=== PATIENT | female | born 2000 | race Caucasian/White ===

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

== ENCOUNTER 2020-12-11 12:24 | Emergency (ER) | payer BC ==
[2020-12-11 12:37] VITALS: TEMP 98.5
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
[2020-12-11 13:27] LABS: Basophils % (A) 0 %; Eosinophils % (A) 0 %; HCT 37.3 % (34.0-46.0); HGB 12.9 gm/dL (11.4-16.0); Lymphocytes # (A) 1.6 k/uL (1.0-4.8); Lymphocytes % (A) 20 %; MCH 31.1 pg (25.0-35.0); MCHC 34.7 g/dL (31.0-37.0); MCV 89.7 fL (80.0-100.0); Mean Platelet Volume 7.4; Monocytes # (A) 0.4 k/uL (0-1.0); Monocytes % (A) 5 %; Neutrophils % (A) 73 %; Platelet Count 276 k/uL (150-450); RBC 4.16 m/uL (3.80-5.40); RDW 12.3 % (11.5-15.5); WBC 8.2 k/uL (4.0-11.0)
[2020-12-11 13:34] LABS: ALT 21 U/L (4-34); AST 31 U/L (14-36); African American GFR (CKD) >90 (>60 ml/min/1.73 sqM); Albumin 4.6 g/dL (3.5-5.0); Alcohol <10 mg/dL; Alkaline Phosphatase 70 U/L (38-126); Anion Gap 9 mmol/L; Blood Urea Nitrogen 9 mg/dL (7-17); Calcium 9.4 mg/dL (8.4-10.2); Carbon Dioxide 24 mmol/L (22-30); Chloride 106 mmol/L (98-107); Glucose 86 mg/dL (74-99); Non-African American GFR(CKD) >90 (>60 ml/min/1.73 sqM); Potassium 4.4 mmol/L (3.5-5.1); Sodium 139 mmol/L (137-145); Total Bilirubin 0.4 mg/dL (0.2-1.3); Total Protein 7.2 g/dL (6.3-8.2)
[2020-12-11 13:42] LABS: Partial Thromboplastin Time 24.6 sec (22.0-30.0); Prothrombin Time 10.3 sec (9.0-12.0)
[2020-12-11 13:47] LABS: Appearance,Urine Clear (Clear); Bilirubin,Urine Negative (Negative); Blood,Urine Negative (Negative); Color,Urine Yellow; Glucose,Urine (UA) Negative (Negative); Ketones,Urine Negative (Negative); Leukocyte Esterase,Urine Negative (Negative); Nitrite,Urine Negative (Negative); PH, Urine 5.5 (5.0-8.0); Protein,Urine Negative (Negative); Specific Gravity,Urine 1.016 (1.001-1.035); Urobilinogen,Urine <2.0 mg/dL (<2.0)
[2020-12-11 14:18] LABS: Amphetamine Screen,Urine Not Detected (NotDetected); Barbiturate Screen,Urine Not Detected (NotDetected); Benzodiazepines Screen,Urine Not Detected (NotDetected); Cocaine Screen,Urine Not Detected (NotDetected); Methadone Screen, Urine Not Detected (NotDetected); Opiate Screen,Urine Not Detected (NotDetected); Oxycodone Screen, Urine Not Detected (NotDetected); Phencyclidine Screen,Urine Not Detected (NotDetected); Tricyclic Antidepressant,Urine Not Detected (NotDetected); Urn Cannabinoid Scrn Not Detected (NotDetected)
[2020-12-11] MEDS ORDERED: fentaNYL (PF) 50 MCG/ML 2 ML AMP IVP STA (14:34)
[2020-12-11 14:48] VITALS: BP 124/72; PULSE 60; RESP 18
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
== END 2020-12-11 15:24 | disposition home or self-care (01) ==
LOC: EC 12:24
DX: S40.012A Contusion of left shoulder, initial encounter (principal); S20.212A Contusion of left front wall of thorax, initial encounter; S70.12XA Contusion of left thigh, initial encounter; S70.11XA Contusion of right thigh, initial encounter; V89.2XXA Person injured in unspecified motor-vehicle accident, traffic, initial encounter; Y92.410 Unspecified street and highway as the place of occurrence of the external cause
CPT/HCPCS: 36415; 93005; 86900; 86901; 80053; 84484; 85025; 85610; 85730; 86850; 81003; 81025; 80306; 80320; 72125; 70450; 71260; 74177; 96374; 99284; J3010; Q9967

== ENCOUNTER 2022-03-04 05:48 | Day surgery (SDC) | payer BC, OTHER ==
[2022-03-02 15:49] VITALS: BMI 21.9
[~2022-03-04 05:48] MED LIST changes: +DEXAMETHASONE SOD PHOSPHATE 4 MG/ML 1 ML VIAL IV ONE; -Pre Op ABX Message 1 EACH MISC MISCELLANE ONE; +SCOPOLAMINE 1 MG/72 HR PATCH TRANSDERM ONE; -fentaNYL (PF) 50 MCG/ML 2 ML AMP IV PRN
[2022-03-04] MEDS ORDERED: HYDROmorphone 0.5 MG/0.5 ML SYRINGE IVP PRN (07:00)
[2022-03-04] MEDS ORDERED: LIDOCAINE 4% LTA KIT (4 ML) TOPICAL ONE (07:20)
[2022-03-04] MEDS ORDERED: LIDOCAINE 2% INJ 20 MG/ML (2 ML VIAL) ONE (07:20)
[2022-03-04] MEDS ORDERED: PROPOFOL 10 MG/ML 20 ML VIAL IV ONE (07:20)
[2022-03-04] MEDS ORDERED: SUCCINYLCHOLINE CHLORIDE 200 MG/10 ML VIAL IV ONE (07:20)
[2022-03-04] MEDS ORDERED: fentaNYL (PF) 50 MCG/ML 2 ML AMP ONE (07:20)
[2022-03-04] MEDS ORDERED: MIDAZOLAM 2 MG/2 ML VIAL ONE (07:20)
[2022-03-04] MEDS ORDERED: ceFAZolin 1,000 MG in SODIUM CHLORIDE 0.9% 1,000 ML IRRIGATION ONE (07:24)
[2022-03-04] MEDS ORDERED: BUPIVACAINE (PF) 0.25% 30 ML VIAL SQ ONE (07:39)
[2022-03-04 08:41] VITALS: TEMP 97.4
[2022-03-04] MEDS ORDERED: KETOROLAC 15 MG/ML 1 ML VIAL IVP ONE (08:51)
[2022-03-04 09:13] VITALS: RESP 18
[2022-03-04 09:32] VITALS: BP 115/74; PULSE 78
--- NOTE | 2022-03-04 10:10 | P.OP ---
Date of Procedure: 03/04/22 Preoperative Diagnosis: Right ankle instability Postoperative Diagnosis: Same Procedure(s) Performed: Secondary repair right lateral ankle ligaments Implants: Arthrex internal brace Arthrex fiber Ganga anchors 2 Anesthesia: GETA Surgeon: Russ Wadsworth Estimated Blood Loss (ml): 2 Pathology: none sent Condition: stable Disposition: PACU Description of Procedure: The patient was taken to the operating room and placed on table supine position. Timeout was taken to confirm correct patient identifiers, correct procedure, and correct site of surgery. When all staff in the room were in agreement with the timeout, the patient was induced and placed under general anesthesia. A bump was placed underneath the hip to internally rotate the affected leg. A well-padded tourniquet was placed on the midcalf stain 3-4 inches distal to the fibular neck. Then 20 mL of 0.25% Marcaine was injected as a right ankle block. The leg was then prepped and draped in usual manner. The leg was exsanguinated and the tourniquet inflated to 250 mmHg. Attention was directed over the lateral ankle where a curved incision was made just anterior to the lateral malleolus. The incision was deepened down to the subcutaneous tissue careful to identify, avoid, and retract any neurovascular structures and cauterize any bleeding vessels. Blunt dissection was continued down to level of the lateral ankle joint capsule and ligamentous structures. The soft tissue structures were sharply incised off the anterior surface the lateral malleolus and reflected anteriorly. A ronguer was used to remove the cortical bone off the anterior surface the lateral malleolus which would help facilitate tissue re-adhesion upon repair. With the ankle at 90 and in neutral inversion and eversion, the capsule was palpated on the lateral surface of the talus anterior to the articular surface. A small stab incision was made in the area of the talar body avoiding both the ankle and subtalar joints and near the junction of the neck. A drill hole was then placed utilizing a 3.4 mm drill bit into the talar body avoiding both the ankle and subtalar joints. The hole was then tapped and then the 4.75 mm swivel lock anchor was inserted and impacted and then advanced to proper depth. The same drill bit was used to create the hole for the 3.5 mm anchor in the lateral malleolus. Drill holes for the Arthrex fiber Kervin anchors were made one inferior and one superior to the 3.4 mm drill hole in the lateral malleolus. With the drill guides for the anchor still in place, the anchors were inserted into the lateral malleolus and impacted to proper depth. The wind turbine electrical engineer and guide were removed and then tension placed on the suture to lock anchors in place. Once both anchors were in place the wound was thoroughly irrigated with antibiotic saline. The suture on the fiber Ganga anchors was then used to capture the distal ligamentous and capsular structures on the talus and then with the ankle in maximum dorsiflexion and eversion, the suture was tied repairing the ligament. The 2 arms of the internal brace suture were then passed through the 3.5 mm anchor which was then aligned with the drill hole lateral malleolus. Utilizing described tensioning techniques, the anchor and aleman ture were inserted into the drill hole and then the anchor advanced to lock the suture in place. At that time the ankle was tested for stability where anterior drawer and inversion stress were both negative. The wound was again irrigated with antibiotic saline. The fiber Ganga suture was used to sew the retinaculum over the lateral malleolus along with the periosteal flap in a pants over vest fashion. Subcu closure was done with 4-0 Monocryl and skin closure done with 3- 0 Stratafix in a running subcuticular manner. Dermal glue was applied across the incision and allowed to dry. Steri-Strips are placed across incision. The incision was covered with an Arthrex jumpstart dressing and then a bulky dry dressing. The tourniquet was released and capillary refill return to all digits on the right foot. The patient was then placed in a well-padded, well molded plaster posterior mold/sugar tong splint. The ankle was held in neutral position until the splint was dried. Anesthesia was reversed and the patient was taken recovery with vital signs stable.
== END 2022-03-04 10:07 | disposition home or self-care (01) ==
LOC: OR 05:48
PROVIDERS: ATTEND Podiatrist
DX: M25.371 Other instability, right ankle (principal); G43.909 Migraine, unspecified, not intractable, without status migrainosus; Z97.3 Presence of spectacles and contact lenses; Z90.89 Acquired absence of other organs; Z79.899 Other long term (current) drug therapy
CPT/HCPCS: 81025; 27698; C1713 ×2; J2250; J0330; J1100; J0690 ×2; J2405; J3010; J1885; J2704; J2001

== ENCOUNTER → 2023-12-11 | Outpatient (CLI) | payer BC ==
--- NOTE | 2023-12-11 13:17 | XR ---
EXAMINATION TYPE: XR ankle complete RT, XR foot complete RT DATE OF EXAM: 12/11/2023 COMPARISON: NONE HISTORY: Pain TECHNIQUE: Frontal, lateral and oblique images of the right ankle and foot are obtained. COMPARISON: None. FINDINGS: There is no acute fracture/dislocation evident. Ankle mortise is intact. There is mild wid ening of 2.7 mm medial tibiotalar joint space. Mild soft tissue swelling present. IMPRESSION: There is no acute fracture or dislocation seen.
== END | disposition home or self-care (01) ==
LOC: RADXRMAIN 12:57
PROVIDERS: ATTEND Pediatrics
DX: M25.571 Pain in right ankle and joints of right foot (principal)